=== PATIENT | female | born 1950 | race Caucasian/White ===

== ENCOUNTER 2022-11-04 12:07 | Outpatient (CLI) | payer MEDICARE | END 2022-11-04 12:08 | disposition home or self-care (01) | LOC: CSHULT 12:07 | PROVIDERS: ATTEND Physician Assistant | DX: R42 Dizziness and giddiness (principal) | CPT/HCPCS: 93880 ==

== ENCOUNTER 2024-04-06 10:21 | Outpatient (CLI) | payer MEDICARE | END 2024-04-06 10:22 | disposition home or self-care (01) | LOC: CSHMAMMO 10:21 | PROVIDERS: ATTEND Specialist | DX: D05.10 Intraductal carcinoma in situ of unspecified breast (principal); Z98.890 Other specified postprocedural states | CPT/HCPCS: A4648 ==

== ENCOUNTER 2024-04-07 10:24 | Day surgery (SDC) | payer MEDICARE ==
[2024-04-04 12:51] VITALS: BMI 23.8
[2024-04-07] MEDS ORDERED: Acetaminophen 500 MG TAB ONE (10:49)
[2024-04-07] MEDS ORDERED: Ketorolac Tromethamine 30 MG (1 mL) VIAL ONE (11:00)
[2024-04-07] MEDS ORDERED: CEFAZOLIN 2 GM VIAL ONE (11:57)
[2024-04-07] MEDS ORDERED: Bupivacaine/Epinephrine 0.25% 30 ML VIAL ONE (12:25)
[2024-04-07] MEDS ORDERED: Lidocaine 2% PF 5 ML VIAL ONE (12:25)
[2024-04-07] MEDS ORDERED: Fentanyl 100 MCG/2 ML VIAL ONE (12:47)
[2024-04-07] MEDS ORDERED: ePHEDrine Sulfate 50 MG/10 ML VIAL ONE (13:02)
[2024-04-07] MEDS ORDERED: Ondansetron PF 4 MG/2 ML Vial ONE (14:07)
[2024-04-07] MEDS ORDERED: Dexamethasone 4 mg/ml Vial ONE (14:07)
== END 2024-04-07 16:00 | disposition home or self-care (01) ==
LOC: CSHSDC 10:24
PROVIDERS: ATTEND Specialist
PROC: 0HBT0ZZ Excision of Right Breast, Open Approach (ICD-10-PCS; principal; 2024-04-07)
DX: D05.11 Intraductal carcinoma in situ of right breast (principal); I10 Essential (primary) hypertension; G45.9 Transient cerebral ischemic attack, unspecified; G47.00 Insomnia, unspecified; Z79.899 Other long term (current) drug therapy; Z79.82 Long term (current) use of aspirin; Z79.01 Long term (current) use of anticoagulants
CPT/HCPCS: 19281; 19301; 76098; C1713; J1100; J1885; J2405; J3010; 88307